=== PATIENT | female | born 1950 | race Caucasian/White ===

== ENCOUNTER → 2020-05-16 | Outpatient (CLI) | payer MEDICARE, OTHER ==
[~2020-05-16] MED LIST: CITA40TA5 PO; COLC0.6T37 PO; HYDR-3237 PO; HYDR-3240 PO; IBUP-1222 PO; LEVO137T2 PO
== END | disposition home or self-care (01) ==
LOC: CFH 14:07
PROVIDERS: ATTEND Physician Assistant Surgical
DX: S62.111A Displaced fracture of triquetrum [cuneiform] bone, right wrist, initial encounter for closed fracture (principal); X58.XXXA Exposure to other specified factors, initial encounter; Y93.89 Activity, other specified; Y92.89 Other specified places as the place of occurrence of the external cause; Y99.8 Other external cause status